=== PATIENT | male | born 1980 | race Caucasian/White ===

== ENCOUNTER 2016-07-29 14:27 | Emergency (ER) | payer BC, MEDICAID, OTHER ==
[~2016-07-29] VITALS: Ht 172.7 cm; Wt 104.0 kg
[~2016-07-29 14:27] MED LIST: BACT800T5 PO; CEPH500C3 PO
[2016-07-29 14:35] VITALS: BP 145/97; PULSE 83; RESP 16; TEMP 97.7; O2SAT 96
--- NOTE | 2016-07-29 16:10 | PD ---
HPI Chief Complaint: ENT Complaint Time Seen by Provider: 15:30 Travel History International Travel<30 days: No Contact w/Intl Traveler<30days: No Traveled to known affect area: No History of Present Illness HPI 35-year-old male presents to the emergency room for evaluation of right ear drainage and possible foreign body. Patient reports chronic, constant bilateral ear drainage for the past 15 years. He has been on multiple steroids , oral medications, and topical medications without relief in symptoms. He has never been able to see an ear, nose, throat doctor. Patient just recently got insurance and plans to follow up with one. He reports possible foreign body to the right ear that he first noticed today. His friend thought was a tick. Patient climbs trees and always has ticks on his body. He denies any pain or bloody drainage. He has mild decreased hearing. PFSH Past Medical History Hx Anticoagulant Therapy: No Asthma: Yes Cardiovascular Problems: No Chemotherapy: No Cerebrovascular Accident: No Diabetes: No Diminished Hearing: No Respiratory: Yes (ASTHMA) Immunizations Current: Yes Past Surgical History Abdominal Surgery: Yes (HERNIA) Tympanostomy Tube: Yes (BILAT EARS) Other Surgery: Yes (RIGHT INGUINAL HERNIA) Social History Alcohol Use: Yes (OCCASIONALLY, BEER) Tobacco Use: Yes (>1 PPD) Substance Use: No Allergies-Medications (Allergen,Severity, Reaction): Coded Allergies: Bee Sting (Verified Allergy, Severe, SWELLING AT SITE, 07/29/16) Reported Meds & Prescriptions Reported Meds & Active Scripts Active Ventolin Hfa 18 GM Inh (Albuterol Sulfate) 90 Mcg/Act Aer 2 Puff INH Q6H PRN Ciprofloxacin Opth Drops (Ciprofloxacin HCl) 0.3% Soln 7 Drop EACH EAR DAILY while awake x 5 days. Review of Systems Except as stated in HPI: all other systems reviewed are Neg Physical Exam Narrative GENERAL: Well-nourished, well-developed male in no acute distress. Afebrile. Ambulatory. SKIN: Focused skin assessment warm/dry. HEAD: Normocephalic. EYES: No scleral icterus. No injection or drainage. NECK: Supple, trachea midline. No JVD or lymphadenopathy. EARS: Bilateral pinnae within normal limits. Left tympanic membrane within normal limits. Right tympanic membrane unable to be visualized secondary to edema and drainage. There is foul-smelling, purulent drainage from bilateral ears. There is a skin colored, nontender protruding from the right ear canal. It is not bleeding or friable. CARDIOVASCULAR: Regular rate and rhythm without murmurs, gallops, or rubs. RESPIRATORY: Breath sounds equal bilaterally. No accessory muscle use. Data Data Last Documented VS Vital Signs Date Time Temp Pulse Resp B/P Pulse Ox O2 Delivery O2 Flow Rate FiO2 07/29/16 14:35 97.7 83 16 145/97 96 MDM Medical Decision Making Medical Screen Exam Complete: Yes Emergency Medical Condition: Yes Medical Record Reviewed: Yes Differential Diagnosis Polyp, foreign body, otitis externa, otitis media Narrative Course 35-year-old male with history of chronic bilateral otitis externa presents to the emergency room with complaint of the same plus possible foreign body to right ear. Patient first noticed it today. 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 Physical exam reveals a skin colored, nontender polyp protruding from the right ear canal. It is not friable. There is bilateral, foul-smelling otitis externa. Patient was told to follow-up with an ear, nose, throat doctor for evaluation of polyp. Told to return for worsening symptoms. He was discharged with Cipro drops. He understands and agrees to plan. Patient also ran out of his inhaler yesterday and is requesting a refill of that; he is in the process of obtaining a primary care physician. Diagnosis Primary Impression: Chronic infective otitis externa of both ears Referrals: Silvano Magaña MD [facility] Ear [facility] Nose [facility] Throat Specialist Patient Instructions: General Instructions, Otitis Externa (ED) Additional Instructions: Rest and drink plenty of fluids. Apply drops as directed, for 7 days. Use inhaler as directed, as needed. Follow up with a primary care physician and ENT. Return to emergency room for worsening symptoms, as discussed. Med/Other Pt SpecificInfo: Prescription(s) given Scripts Albuterol 18 GM Inh (Ventolin Hfa 18 GM Inh)90 Mcg/Act Aer2 Puff INH Q6H PRN ( SHORTNESS OF BREATH) #1 INHALER Ref 0 Prov:Asia Medina MD 07/29/16 Ciprofloxacin Opth Drops 0.3% Soln7 Drop EACH EAR DAILY #1 BOTTLE Ref 0 while awake x 5 days. Prov:Asia Medina MD 07/29/16 Disposition: 01 DISCHARGE HOME Condition: Stable Brittani Guillaume Jul 29, 2016 16:10
[2016-07-29] MEDS ORDERED: CIPR0.3S2 EACH EAR (16:11)
[2016-07-29] MEDS ORDERED: VENTAER INH (16:12)
== END 2016-07-29 16:25 | disposition home or self-care (01) ==
LOC: PHEFT 14:27
DX: H60.63 Unspecified chronic otitis externa, bilateral (principal); J45.909 Unspecified asthma, uncomplicated; F17.210 Nicotine dependence, cigarettes, uncomplicated
CPT/HCPCS: 99283